=== PATIENT | male | born 1975 | race Two or more races ===

== ENCOUNTER 2018-11-30 19:40 | Emergency (ER) | payer SELFPAY ==
[~2018-11-30] VITALS: Ht 167.6 cm; Wt 60.3 kg
--- NOTE | 2018-11-30 19:50 | NUR ---
NIHSS SCALE = 2. TRIAGE NURSE NOTIFIED.
--- NOTE | 2018-11-30 21:00 | NUR ---
PT BIBSELF COMPLAINING OF RIGHT SIDE FACIAL PARALYSIS X2 WEEKS. NUMBESS AND TINGLING ON RIGHT ARM X1 DAY. PT ALSO COMPLAINING OF HEADACHE, WORSE AT NIGHT. PT DENIES SOB, CHEST PAIN, N/V/D, VISION CHANGES. NO OTHER DEFICIT NOTED. PT AAOX4. RESPIRATIONS EVEN AND UNLABORED. SKIN WARM AND INTACT. VITAL SIGNS STABLE. NO ACUTE DISTRESS NOTED. PT PLACED ON MONITOR, WILL CONTINUE TO MONITOR
[2018-11-30] MEDS ORDERED: ACETAMINOPHEN ES 500 MG TABLET ONE (21:59)
[2018-11-30] MEDS: ACETAMINOPHEN ES 500 MG TABLET PO ONE (22:01)
--- NOTE | 2018-11-30 23:05 | NUR ---
SHRIMPING BOAT CAPTAIN AT BEDSIDE FOR BLOOD DRAW
[2018-11-30 23:15] LABS: BASOPHILS # (AUTO) 0.1 /CMM (0.0-0.2); BASOPHILS % (AUTO) 0.6 % (0.0-2.0); EOSINOPHILS % (AUTO) 0.1 % (0.0-6.0); HEMATOCRIT 45 % (39-51); HEMOGLOBIN 15.4 g/dL (13.5-17.5); LYMPHOCYTES # (AUTO) 1.6 /CMM (0.8-4.8); LYMPHOCYTES % (AUTO) 14.4 % (20.0-44.0); MEAN CORPUSCULAR HGB CONC 34 g/dl (31.0-36.0); MEAN CORPUSCULAR VOLUME 95 fL (80-96); MONOCYTES # (AUTO) 0.4 /CMM (0.1-1.30); MONOCYTES % (AUTO) 3.6 % (2.0-12.0); NEUTROPHILS # (AUTO) 9.2 /CMM (1.8-8.9); NEUTROPHILS % (AUTO) 81.3 % (43.0-81.0); PLATELET COUNT (AUTO) 333 /CMM (150-450); RED BLOOD CELL COUNT(AUTO) 4.71 MIL/uL (4.5-6.0); WHITE BLOOD COUNT (AUTO) 11.3 K/uL (4.3-11.0)
[2018-11-30 23:26] LABS: CALCIUM, SERUM 8.4 mg/dL (8.5-10.1); CREATININE 1.2 mg/dL (0.6-1.3); POTASSIUM 4.1 mmol/L (3.5-5.1)
[2018-11-30] MEDS ORDERED: TETRACAINE HCL/PF 0.5% UD 2 ML BOTTLE ONE (23:31)
[2018-11-30] MEDS ORDERED: FLUORESCEIN SODIUM OPHTH 1 EA STRIP ONE (23:31)
[2018-11-30] MEDS: TETRACAINE HCL/PF 0.5% UD 2 ML BOTTLE OP ONE (23:33)
[2018-11-30] MEDS: FLUORESCEIN SODIUM OPHTH 1 EA STRIP OP ONE (23:33)
--- NOTE | 2018-11-30 23:57 | NUR ---
Patient discharged to home in stable condition. Written and verbal after care instructions given. Patient verbalizes understanding of instruction. Pt ambulatory with a steady gait
[2018-11-30 23:58] VITALS: BP 126/72
== END 2018-11-30 23:58 | disposition home or self-care (01) ==
LOC: ER 19:43
DX: S05.01XA Injury of conjunctiva and corneal abrasion without foreign body, right eye, initial encounter (principal); G51.0 Bell's palsy; Z60.2 Problems related to living alone; X58.XXXA Exposure to other specified factors, initial encounter; Y93.89 Activity, other specified; Y92.89 Other specified places as the place of occurrence of the external cause; Y99.8 Other external cause status
CPT/HCPCS: 36415; 70450-TC; 80048-TC; 85025-TC; 85730-TC